=== PATIENT | female | born 1970 ===

== ENCOUNTER 2016-08-25 10:16 | Emergency (ER) | payer BC ==
[2016-08-25 10:25] VITALS: TEMP 98; O2SAT 98
[2016-08-25 10:26] VITALS: BMI 25.7
--- NOTE | 2016-08-25 10:44 | ED PDOC ---
Lower Extremity Pain/Injury Time Seen by Provider: 08/25/16 10:43 Chief Complaint (Nursing): Lower Extremity Problem/Injury Chief Complaint (Provider): bilateral foot pain History Per: Patient Additional Complaint(s): Patient presented to emergency department for evaluation of bilateral foot pain that has been ongoing for several months. Patient is concerned she may have heel spurs. She denies trauma or injury, no fever or chills. No meds taken for pain relief. Patient is currently 4 months and she is not breast- feeding. Past Medical History Reviewed: Historical Data, Nursing Documentation, Vital Signs Vital Signs: Last Vital Signs Temp 98 F 08/25/16 10:25 Pulse 101 H 08/25/16 10:25 Resp BP 125/74 08/25/16 10:25 Pulse Ox 98 08/25/16 10:25 - Medical History PMH: No Chronic Diseases - Surgical History Surgical History: Appendectomy - Family History Family History: States: No Known Family Hx - Social History Current smoker - smoking cessation education provided: Yes Alcohol: None Drugs: Denies - Immunization History Hx Influenza Vaccination: No - Home Medications Home Medications: Ambulatory Orders Medication Instructions Recorded No Known Home Med 08/25/16 - Allergies Allergies/Adverse Reactions: Allergies Allergy/AdvReac Type Severity Reaction Status Date / Time Penicillins Allergy RASH Verified 08/25/16 10:45 Wells Criteria for PE - Wells Criteria for Pulmonary Embolism Clinical Signs and Symptoms of DVT: No P.E is #1 Diagnosis, or Equally Likely: No Heart Rate >100: No Immobilization at least 3 days;Surgery previous 4 weeks: No Previous, objectively diagnosed PE or DVT: No Hemoptysis: No Malignancy w/treatment within 6 months, or palliative: No Total Score: 0 Review of Systems ROS Statement: Except As Marked, All Systems Reviewed And Found Negative Constitutional: Negative for: Fever Musculoskeletal: Positive for: Foot Pain (bilateral heel pain) Physical Exam - Reviewed Nursing Documentation Reviewed: Yes Vital Signs Reviewed: Yes - Physical Exam Appears: Positive for: Well, Non-toxic, No Acute Distress Extremity: Positive for: Other (Mild tenderness to heels bilaterally with no erythema or soft tissue swelling, no open wounds). Negative for: Pedal Edema Neurologic/Psych: Positive for: Alert, Oriented - ECG O2 Sat by Pulse Oximetry: 98 Pulse Ox Interpretation: Normal - Other Rad X-rays left and right feet X-Ray: Interpreted by Me, Viewed By Me X-Ray Interpretation: heel spurs bilaterally, no fx, no dis Medical Decision Making Medical Decision Makin46 year old with bilateral foot pain Plan: X-rays left and right feet PO tylenol Patient aware of x-ray results. She was instructed to take Tylenol or Advil for pain and was referred to podiatry clinic for follow-up. Disposition - Clinical Impression Clinical Impression: Heel spur - Patient ED Disposition Is Patient to be Admitted: No Counseled Patient/Family Regarding: Studies Performed, Diagnosis, Need For Followup - Disposition Referrals: Podiatry Clinic [Outside] Disposition: Routine/Home Disposition Time: 11:27 Condition: STABLE Additional Instructions: Take Tylenol or Advil for pain. Follow-up with podiatry clinic. Instructions: Heel Spur (ED)
[2016-08-25 11:44] VITALS: BP 122/72; PULSE 79; RESP 19
--- NOTE | 2016-08-25 12:40 | RAD ---
PROCEDURE: Left Foot Radiographs. HISTORY: heel pain COMPARISON: None. FINDINGS: BONES: Normal. No fracture. JOINTS: Normal. SOFT TISSUES: Normal. OTHER FINDINGS: None. IMPRESSION: Normal left foot radiographs.
--- NOTE | 2016-08-25 12:40 | RAD ---
PROCEDURE: Right Foot Radiographs. HISTORY: heel pain COMPARISON: None. FINDINGS: BONES: Normal. No fracture. JOINTS: Normal. SOFT TISSUES: Normal. OTHER FINDINGS: None. IMPRESSION: Normal right foot radiographs.
== END 2016-08-25 11:45 | disposition home or self-care (01) ==
LOC: H.ER 10:16
DX: Z88.0 Allergy status to penicillin (principal)

== ENCOUNTER 2016-10-19 13:08 | Emergency (ER) | payer BC ==
[2016-10-19 13:08] VITALS: BMI 25.7
[2016-10-19 13:20] VITALS: PULSE 108; RESP 16; TEMP 99.4; O2SAT 100
[2016-10-19 13:24] VITALS: BP 108/62
[2016-10-19] MEDS ORDERED: Naproxen 500 MG TAB PO ONE (13:25)
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
== END 2016-10-19 14:58 | disposition home or self-care (01) ==
LOC: H.ER 13:08
DX: J11.1 Influenza due to unidentified influenza virus with other respiratory manifestations (principal); R11.10 Vomiting, unspecified; R50.9 Fever, unspecified; Z88.0 Allergy status to penicillin

== ENCOUNTER 2017-03-23 06:00 | Emergency (ER) | payer BC ==
[2017-03-23 06:10] VITALS: BMI 27.4
[2017-03-23 06:14] VITALS: BP 131/68; PULSE 94; RESP 16; TEMP 98.9; O2SAT 99
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
[2017-03-23] MEDS ORDERED: Sodium Chloride 0.9% 1,000 ML IV STA (06:38)
[2017-03-23 07:17] LABS: BASO # 0.1 K/uL (0.0-0.2); BASO % 0.7 % (0.0-2.0); EOS # 0.3 K/uL (0.0-0.7); EOS % 2.2 % (0.0-4.0); HEMATOCRIT 41.9 % (34.0-47.0); LYMPH # 2.7 K/uL (1.0-4.3); LYMPH % 19.4 % (20.0-40.0); MEAN CELL VOLUME 89.8 fl (81.0-99.0); MEAN CORPUSCULAR HEMOGLOBIN 30.1 pg (27.0-31.0); MEAN CORPUSCULAR HGB CONC 33.5 g/dL (33.0-37.0); MEAN PLATELET VOLUME 8.8 fl (7.2-11.7); MONO # 0.9 K/uL (0.0-0.8); MONO % 6.6 % (0.0-10.0); NEUT # 10.1 K/uL (1.8-7.0); NEUT % 71.1 % (50.0-75.0); RED CELL DISTRIBUTION WIDTH 13.4 % (11.5-14.5); WHITE BLOOD COUNT 14.1 K/uL (4.8-10.8)
[2017-03-23 07:35] LABS: ALB/GLOB RATIO 1.3 (1.0-2.1); ALKALINE PHOSPHATASE 60 U/L (38-126); ALT/SGPT 20 U/L (9-52); AST/SGOT 16 U/L (14-36); BILIRUBIN,TOTAL 0.6 mg/dl (0.2-1.3); BLOOD UREA NITROGEN 15 mg/dl (7-17); CALCIUM 8.5 mg/dL (8.4-10.2); CARBON DIOXIDE 22 mmol/L (22-30); CHLORIDE 108 mmol/L (98-107); GFR AFRICAN-AMERICAN > 60; GLUCOSE,RANDOM 96 mg/dL (65-105); POTASSIUM 3.9 MMOL/L (3.6-5.0); SODIUM 137 mmol/l (132-148); TOTAL PROTEIN 7.1 G/DL (6.3-8.2)
--- NOTE | 2017-03-23 09:21 | US ---
Indication: , bleeding Comparison: Ob ultrasound performed 10/17/15 Technique: Real-time transabdominal pelvic ultrasound was performed. In addition a transvaginal pelvic ultrasound was necessary to better depict pelvic anatomy. Findings: The uterus measures approximately 11.0 x 6.8 x 6.1 cm. Anteverted. Heterogeneous uterine echotexture. At least 3 probable uterine fibroids are identified. 1.3 x 1.0 x 0.9 cm mid posterior uterus; 0.7 x 0.9 x 1.0 cm posterior fundus, and 0.9 x 1.0 x 0.7 cm mid to lower anterior uterus. The endometrium measures approximately 7 mm in diameter. The right ovary measures 3.7 x 3.3 x 1.8 cm. The left ovary measures 3.1 x 2.5 x 1.5 cm and contains 1.3 x 1.1 x 0.7 cm cyst. Blood flow was demonstrated to both ovaries. Trace fluid is noted lateral to the left ovary. Nabothian cyst. Impression: No evidence of intrauterine gestational sac. If indeed the patient is based on serum beta HCG values, the sonographic findings represent either: Very early IUP; embryonic demise; ectopic gestation. Follow-up with serial quantitative serum beta HCG measurements and post OBGYN follow-up as clinically indicated, since ectopic gestation cannot be excluded based only on sonographic findings. At least 3 probable uterine fibroids. Trace fluid is noted lateral to the left ovary.
--- NOTE | 2017-03-23 10:07 | ED PDOC ---
- Laboratory Results Result Diagrams: 03/23/17 07:05 03/23/17 07:05 - ECG O2 Sat by Pulse Oximetry: 99 (RA) Disposition - Clinical Impression Clinical Impression: Threatened - POA Present On Arrival: None - Disposition Referrals: [facility] [Outside] Disposition: Routine/Home Disposition Time: 10:06 Condition: FAIR Additional Instructions: Repeat beta HCG 48 hours Instructions: Threatened Miscarriage (ED) Forms: [employer] (Sami)
== END 2017-03-23 10:34 | disposition home or self-care (01) ==
LOC: H.ER 06:00
DX: O20.0 Threatened abortion (principal); Z88.0 Allergy status to penicillin
CPT/HCPCS: 76815; 76817; 80053; 84702; 85025; 86850; 86900; 99283; J7040